=== PATIENT | male | born 1970 | race Asian ===

== ENCOUNTER 2017-10-11 10:04 | Day surgery (SDC) | payer OTHER ==
[~2017-10-11 10:04] MED LIST: CEFAZOLIN 1 GM INJ
[2017-10-11] MEDS ORDERED: HEPARIN 1000 UNITS/ML 10 ML INJ (11:39)
[2017-10-11] MEDS ORDERED: LIDOCAINE 1% (MPF) 30 ML INJ (11:39)
[2017-10-11] MEDS: HEPARIN 1000 UNITS/ML 10 ML INJ IRR (12:11)
[2017-10-11] MEDS: LIDOCAINE 1% (MPF) 30 ML INJ INJ (12:11)
[2017-10-11 12:18] LABS: POTASSIUM 4.5 mmol/L (3.5-5.1)
[2017-10-11] MEDS ORDERED: FENTAnyl 50 MCG/ML VIAL (12:23)
[2017-10-11] MEDS ORDERED: ROPIVACAINE 0.2% 20 ML VIAL (12:23)
[2017-10-11] MEDS ORDERED: PROPOFOL 40 ML (12:23)
[2017-10-11] MEDS ORDERED: MIDAZOLAM 1 MG/ML 2 ML INJ (12:23)
[2017-10-11] MEDS ORDERED: ONDANSETRON 4 MG INJ IV (13:00)
[2017-10-11] MEDS ORDERED: HYDROmorphONE (0.2 MG/ML) 10ML SYG IV ×3 (13:00)
[2017-10-11] MEDS ORDERED: OXYCODONE/ACETAMINOPHEN (5/325) TAB PO ×2 (13:00)
[2017-10-11] MEDS ORDERED: MEPERIDINE 25 MG INJ IV (13:00)
[2017-10-11] MEDS ORDERED: DIPHENHYDRAMINE 50 MG INJ IV (13:00)
== END 2017-10-11 15:46 | disposition home or self-care (01) ==
LOC: SDS 10:04
DX: I12.0 Hypertensive chronic kidney disease with stage 5 chronic kidney disease or end stage renal disease (principal); N18.6 End stage renal disease; E78.5 Hyperlipidemia, unspecified
CPT/HCPCS: 36821; 84132